=== PATIENT | female | born 1985 | race Caucasian/White ===

== ENCOUNTER → 2020-05-09 12:28 | Outpatient (CLI) | payer OTHER, SELFPAY ==
[2020-05-02 10:41] VITALS: BMI 68.8
--- NOTE | 2020-05-09 12:30 | US_ITS ---
STUDY: ULTRASOUND OF THE FEMALE PELVIS - COMPLETE REASON FOR EXAM: Female, 34 years old. AUB . Abnormal uterine bleeding. LMP: Unknown. TECHNIQUE: Transabdominal and Transvaginal TECHNICAL QUALITY: Limited. Examination limited due to a combination of factors including obesity and bowel gas. COMPARISON: None. FINDINGS: The uterus is anteverted and is in a midline position. The uterus is enlarged and measures 12.2 cm x 6.7 cm x 5.7 cm. Normal uterine cervix. The endometrium measures 11 mm in thickness, and is hyperechoic. There is no demonstrated endometrial mass. There is no demonstrated myometrial mass. I.U.D. - The patient does not have an I.U.D. The right ovary is visualized. The right ovary measures 3.2 cm x 3.6 x 2.5 cm. There is no right ovarian cyst or ovarian mass. There is no visualized right adnexal mass or complex lesion. There is normal arterial and normal venous vascularity. The left ovary is visualized. The left ovary measures 3.4 cm x 2.9 cm x 2.4 cm. There is no left ovarian cyst or ovarian mass. There is no visualized left adnexal mass or complex lesion. There is normal arterial and normal venous vascularity. There is no fluid in the cul-de-sac. The pre void volume of the bladder was 81 ml. US/Transvaginal Non- IMPRESSION: Enlarged uterus. Electronically Signed: Marc Riggins MD at 15:44 EDT , Service support ,
--- NOTE | 2020-05-09 12:30 | US_ITS ---
STUDY: ULTRASOUND OF THE FEMALE PELVIS - COMPLETE REASON FOR EXAM: Female, 34 years old. AUB . Abnormal uterine bleeding. LMP: Unknown. TECHNIQUE: Transabdominal and Transvaginal TECHNICAL QUALITY: Limited. Examination limited due to a combination of factors including obesity and bowel gas. COMPARISON: None. FINDINGS: The uterus is anteverted and is in a midline position. The uterus is enlarged and measures 12.2 cm x 6.7 cm x 5.7 cm. Normal uterine cervix. The endometrium measures 11 mm in thickness, and is hyperechoic. There is no demonstrated endometrial mass. There is no demonstrated myometrial mass. I.U.D. - The patient does not have an I.U.D. The right ovary is visualized. The right ovary measures 3.2 cm x 3.6 x 2.5 cm. There is no right ovarian cyst or ovarian mass. There is no visualized right adnexal mass or complex lesion. There is normal arterial and normal venous vascularity. The left ovary is visualized. The left ovary measures 3.4 cm x 2.9 cm x 2.4 cm. There is no left ovarian cyst or ovarian mass. There is no visualized left adnexal mass or complex lesion. There is normal arterial and normal venous vascularity. There is no fluid in the cul-de-sac. The pre void volume of the bladder was 81 ml. US/Pelvic (Non ) IMPRESSION: Enlarged uterus. Electronically Signed: Marc Riggins MD at 15:44 EDT , Service support ,
[2020-05-09 14:59] LABS: Absolute Lymphocyte Count 2.66 X10^3/uL (0.83-4.51); Absolute Neutrophil Count 4.5 X10^3/uL (2.0-7.7); Basophil# 0.05 X10^3/uL; Basophil% 0.6 % (0-1); Eosinophil# 0.15 X10^3/uL; Eosinophils% 1.9 % (0-5); Hematocrit 42.3 % (37-47); Hemoglobin 12.9 g/dL (12.0-15.0); Lymphocyte # 2.66 X10^3/ul (4.0); Lymphocyte % 34.2 % (19-41); Mean Corp Hgb Conc 30.5 g/dL (32-36); Mean Corpuscular Hgb 24.3 pg (27.0-32.0); Mean Corpuscular Volume 79.7 fL (81-99); Mean Platelet Vol. 10.8 fl (6.2-12.0); Monocyte# 0.37 X10^3/uL; Monocyte% 4.8 % (0-10); NRBC Flagged by Analyzer 0 % (0-5); Platelet Count 317 K/mm3 (150-450); RBC Distribution Width SD 40.9 fl (35.1-43.9); Red Blood Count 5.31 M/mm3 (4.2-5.4); White Blood Count 7.8 K/mm3 (4.4-11.0)
[2020-05-09 16:01] LABS: Prolactin 5.5 ng/mL; Thyroid Stim Hormone (TSH) 2.78 uIU/mL (0.358-3.74)
== END ==
PROVIDERS: PCP Family Medicine; Referring Provider Obstetrics & Gynecology; Visit Provider Obstetrics & Gynecology
DX: N93.9 Abnormal uterine and vaginal bleeding, unspecified (principal); N85.2 Hypertrophy of uterus
CPT/HCPCS: 36415; 76830; 76856; 84146; 84443; 85025

== ENCOUNTER → 2020-06-24 13:02 | Outpatient (CLI) | payer OTHER, SELFPAY ==
[2020-06-24 10:09] VITALS: BMI 70.2
--- NOTE | 2020-06-24 10:45 | EMB_PTH ---
PATIENT: JASON HERNÁNDEZ LOC: [facility] U#:[id number] AGE/SX: 39/F ROOM: RE06/24/[address]: Dr. Chelsea Forbes MD : 1985 BED: DIS: SPEC #: [id number] RECD: 06/24/20 12:47 STATUS: SANTIAGO REElisha #: [id number] TIMBO: 06/24/20 10:[address]: Chelsea Forbes DEPT: SURGICAL PATHOLOGY RECD BY: Edna Gleason ENTERED: 06/24/20 13:13 SP TYPE: ENDOM BX/C [place] DR: Rajiv Do Tissues: Endometrium, NOS Procedures: Surgery Specimen Level IV HEADER OPERATION: Endometrial biopsy PRE-OP DIAGNOSIS: Abnormal uterine bleeding TISSUE SUBMITTED: Endometrial lining MICROSCOPIC DIAGNOSIS Endometrial biopsy: Proliferative endometrium with focal area of mildly disordered proliferative endometrium. SJ:jaime 06/25/2020 MICROSCOPIC DESCRIPTION Slides are reviewed. GROSS DESCRIPTION Received is one container labeled with the patient's name and not further designated. The specimen consists of multiple pieces of cosme-pink soft tissue mixed with mucoid tissue that in aggregate measure 2 x 2 x 0.1 cm. The specimen is totally submitted in one cassette. / SJ:jaime 06/24/20 TC:5 CPT: 05191
[2020-06-26 09:55] LABS: HPV APTIMA, High Risk Negative (Negative)
== END ==
PROVIDERS: PCP Family Medicine; Referring Provider Obstetrics & Gynecology; Visit Provider Obstetrics & Gynecology
DX: N93.9 Abnormal uterine and vaginal bleeding, unspecified (principal); Z12.4 Encounter for screening for malignant neoplasm of cervix
CPT/HCPCS: 87624; 88175; 88305; G0145

== ENCOUNTER 2020-07-16 07:50 | Day surgery (SDC) | payer OTHER, SELFPAY ==
[2020-05-22 12:05] VITALS: BMI 69.1
[2020-06-24 10:09] VITALS: BMI 70.2
--- NOTE | 2020-07-15 09:05 | EKG12_ITS ---
Test Reason : PRE-OP Blood Pressure : / mmHG Vent. Rate : 079 BPM Atrial Rate : 079 BPM P-R Int : 152 ms QRS Dur : 102 ms QT Int : 378 ms P-R-T Axes : -17 005 050 degrees QTc Int : 433 ms Normal sinus rhythm Normal ECG Confirmed by STARLA PRIDE, EMILY ([id number]), mapping editor NATASHA BEJARANO ([id number]) on 07/16/2020 9:05:32 AM Referred By: Chelsea Forbes Confirmed By:EMILY CHA MD
[2020-07-15 10:09] LABS: Hematocrit 38.6 % (37-47); Hemoglobin 11.4 g/dL (12.0-15.0); Mean Corp Hgb Conc 29.5 g/dL (32-36); Mean Corpuscular Hgb 23.3 pg (27.0-32.0); Mean Corpuscular Volume 78.8 fL (81-99); Platelet Count 236 K/mm3 (150-450); RBC Distribution Width CV 14.6 % (11.6-14.6); RBC Distribution Width SD 41.3 fl (35.1-43.9); White Blood Count 6.8 K/mm3 (4.4-11.0)
[2020-07-15 10:39] LABS: Anion Gap 4 (5-15); BUN 11 mg/dL (7-18); BUN/Creat Ratio 14.2 RATIO (10-20); Calcium,Total 8.7 mg/dL (8.5-10.1); Chloride 103 mmol/L (98-107); Creatinine, Serum 0.77 mg/dL (0.55-1.02); EST Glomerular Filtration Rate 91 mL/min (>60); Est Glom Filt Rate - Afr Amer 110 mL/min (>60); Glucose 113 mg/dL (74-106); Potassium 3.8 mmol/L (3.5-5.1); Sodium Level 135 mmol/L (136-145)
[2020-07-16] VITALS (17 sets, daily range): BP systolic 102–135; BP diastolic 42–89; PULSE 67–88; RESP 16–30; TEMP 36.4–37.3; O2SAT 92–99; BMI 70.0
--- NOTE | 2020-07-16 | HYST_PTH ---
PATIENT: JASON HERNÁNDEZ LOC: [facility] [place] U#:[id number] AGE/SX: 34/F ROOM: RE07/16/[address]: Dr. Chelsea Forbes MD : 1985 BED: DIS: 07/17/2020 SPEC #: [id number] RECD: 07/16/20 15:19 STATUS: SANTIAGO REElisha #: [id number] TIMBO: 07/16/20 00:[address]: Chelsea Forbes DEPT: SURGICAL PATHOLOGY RECD BY: Andres Angel ENTERED: 07/17/20 08:57 SP TYPE: HYSTERECT OTHR DR: MD Dr. Rajiv Bazan MD Tissues: Uterus, NOS Procedures: Surgery Specimen Level V HEADER OPERATION: ERAS, laparoscopic robotic hysterectomy, bilateral salpingectomy PRE-OP DIAGNOSIS: Abnormal uterine bleeding TISSUE SUBMITTED: Cervix, uterus, bilateral fallopian tubes MICROSCOPIC DIAGNOSIS Uterus, hysterectomy: Cervix ? squamous metaplasia and mild chronic inflammation. Endometrium ? proliferative endometrium. Endometrial polyp ? benign endometrial polyp with focal cystic change/mild disorder. Myometrium ? focal superficial adenomyosis. Right and left fallopian tubes ? focal endometrial cysts. See comment. AM:jaime 07/18/2020 COMMENT One fallopian tube contains two foci of endometrial cysts. Case has been reviewed in consultation with Dr. Hernandez who concurs with the above diagnosis. IDC:[email or web address] MICROSCOPIC DESCRIPTION Slides are reviewed. GROSS DESCRIPTION Received in fixative is one container labeled with the patient's name and designated uterus, cervix, bilateral fallopian tubes. The specimen consists of a hysterectomy specimen consisting of a uterus, cervix and detached portion of cervix consisting predominantly of ectocervix and detached bilateral fallopian tubes. The uterus with cervix and detached portion of cervix weighs 223 gm. The detached cervix measures 3.5 x 3 x 1 cm. The ectocervical mucosa is unremarkable. The external os is circular in contour. The uterus with detached portion of cervix measures 13 x 9 x 6 cm. It is previously, partially opened. The serosal surface is focally ragged. The endocervical canal measures 4 cm in length and the endocervical mucosa is cosme, glistening and unremarkable. The triangular endometrial cavity measures 6 cm in length and up to cm in width. The endometrium is without any mass lesion and measures up to 0.3 cm in thickness. A detached polyp is noted in the endometrium measuring 2.5 x 1 x 0.5 cm. Sections of the uterine wall do not reveal any mass lesion and it measures 3.5 cm in thickness. The fallopian tubes are not identified as right or left. One of the fallopian tubes measure 4.5 cm in length and 0.5 cm in diameter. The fimbrial end is identified. The second fallopian tube measures 2.5 cm in length and 0.5 cm in diameter. The fimbrial end is identified. Sections of both fallopian tubes reveal unremarkable cut surfaces. Activity Therapist sections are submitted in ten cassettes as follows: 1 - anterior endocervix and detached portion of cervix, 2 - posterior endocervix and detached portion of ectocervix, 3 & 4 - anterior uterine wall, 5 & 6 - posterior uterine wall, 7 - ragged area anterior serosal surface, 8 - endometrial polyp, entirely submitted, 9 - one fallopian tube, 10 - second fallopian tube, entirely submitted. / LINDA:jaime 07/17/20 TC:1 CPT: 48808
[2020-07-16 08:24] LABS: Internal QC Validated? YES +Cl - CLEAR BKGD; Pregnancy, Urine Negative Negative
--- NOTE | 2020-07-16 08:33 | PCM.HP.OB ---
HPI - General HPI Narrative JASON HERNÁNDEZ, is a 34 F who presents robotic assisted total laparoscopic hysterectomy, bilateral salpigectomy, possible bilateral salpingoophorectomy, cystoscopy for AUB with heavy menstrual bleeding PFSH Medical History Anxiety Back pain Bite from insect History of edema History of renal disease History of ulceration Non-smoker Home Medications ibuprofen 800 mg PO Q6H PRN 07/11/20 [History Last Taken Unknown] Allergy/AdvReac Type Severity Reaction Status Date / Time bee pollen [Bee Pollen] Allergy Other Verified 07/11/20 09:24 caterpillers Allergy Other Uncoded 07/11/20 09:24 cats Allergy Other Uncoded 07/11/20 09:24 Family History Mother Diabetes Heart disease Hypertension Surgical History S/P S/P cholecystectomy S/P dilation and curettage Social History Smoking Status: Never smoker alcohol intake: never substance use type: does not use caffeine: Yes what type of physical activity do you participate in: walking frequency: 1-2 times per week seatbelt use: always do you feel safe at home: Yes additional social history: - Quang History 3 Elective abortions Hx Para 2 Spontaneous abortions 1 Hx # Term Pregnancies Ectopic pregnancies Hx # Pregnancies Multiple births # of living children 2 Past Pregnancies Del. Date Name GA/Weeks Outcome Route Bth Weight Infant Gen [facility] F[facility] Unknown Anju Female Unknown Damion Female ROS Eyes Eyes: Reports systems reviewed and no addt'l complaints, except as documented ENT HEENT: Reports systems reviewed and no addt'l complaints, except as documented Cardiovascular Cardiovascular: Reports systems reviewed and no addt'l complaints, except as documented Respiratory/Chest Respiratory/Chest: Reports systems reviewed and no addt'l complaints, except as documented Gastrointestinal Gastrointestinal: Reports systems reviewed and no addt'l complaints, except as documented Genitourinary Genitourinary: Reports systems reviewed and no addt'l complaints, except as documented Musculoskeletal Musculoskeletal: Reports systems reviewed and no addt'l complaints, except as documented Integumentary Integumentary: Reports systems reviewed and no addt'l complaints, except as documented Neurologic Neurologic: Reports systems reviewed and no addt'l complaints, except as documented Psychiatric Psychiatric: Reports systems reviewed and no addt'l complaints, except as documented Endocrine Endocrinology: Reports systems reviewed and no addt'l complaints, except as documented Hematologic/Lymphatic Hematologic/Lymphatic: Reports systems reviewed and no addt'l complaints, except as documented Allergic/Immunologic Allergic/Immunologic: Reports systems reviewed and no addt'l complaints, except as documented Vital Signs Vital Signs Vital Signs: Weight Weight: 384 lb Body Mass Index (BMI) 70.2 Physical Exam Const alert, oriented x3, no apparent distress, average body habitus, healthy appearing and well nourished HEENT normocephalic and moist oral mucous membranes Head and Scalp: atraumatic Eyes PERRL and EOMs intact bilaterally Neck full ROM Resp normal respiratory effort, no retractions and no use of accessory muscles Cardio regular rate and regular rhythm GI soft to palpation, non-tender and non-distended Extremity normal to inspection and full ROM Skin no rashes or lesions noted Neuro no focal motor deficits and no sensory deficits noted Psych mental status grossly normal, affect normal, speech normal and activity/motor behavior normal Labs Labs Labs: Blood Type O POSITIVE Antibody Screen NEGATIVE Hct 38.6 % (37-47) Hgb 11.4 g/dL (12.0-15.0) L Rubella IgG Antibody 31.9 IU/mL Hep Bs Antigen Negative (Negative) Neisseria gonorrhoeae DNA (RACHEL) Negative (Negative) Glucose 1 Hr 50 gm 92 mg/dL (70-140) Group B Strep DNA Negative (Negative) Rhogam given: No Assessment & Plan (1) Abnormal uterine bleeding (AUB): PLAN: Patient presents for robotic assisted total laparoscopic hysterectomy, bilateral salpingectomy, possible bilateral salpingoophorectomy, cystoscopy for AUB with heavy menstrual bleeding No changes to medical or surgical history ROS done and is negative EMB and pap negative Reviewed pre-op and post-op expectations and precautions Again reviewed risks of surgery with patient. Consent signed in office
[2020-07-16] MEDS: Scopolamine 1mg/72hr Patch 1 PATCH TD (08:43)
[2020-07-16] MEDS: Gabapentin 600 MG Tablet PO (08:45)
[2020-07-16] MEDS: Celecoxib 200 MG Capsule 400 MG PO (08:45)
[2020-07-16 08:46] LABS: Bedside Glucose 116 mg/dL (70-110)
[2020-07-16] MEDS: Acetaminophen 500 MG Tablet 1000 MG PO (08:46)
[2020-07-16] MEDS: Phenazopyridine 95 MG Tablet 190 MG PO (08:46)
[2020-07-16] MEDS: dexAMETHasone 10 MG/ML Vial 8 MG IV (09:06)
[2020-07-16] MEDS: Lactated Ringers 1,000 ML 70 ML IV (09:15)
[2020-07-16] MEDS: Lactated Ringers 1,000 ML 40 ML IV (09:19)
[2020-07-16] MEDS: Ropivacaine 0.5% 30 ML Vial (12:00)
--- NOTE | 2020-07-16 14:21 | PCM.DC ---
Discharge Instructions Diet Discharge Diet: No restrictions Activity Discharge Activity: Return to Normal Activity, May Not Drive (while taking narcotic pain medications.) and May Shower May resume sexual activity in: 6-8 weeks Dressing / Incision Call your doctor if your incision/area has: Continuous Slow Oozing, Sudden Increased Bleeding, Increased Pain/ Swelling, Increased Redness and Foul Smelling Discharge Call your doctor if you observe: Fever of 101 or Higher, Inability to urinate, Inability to have a bowel movement and Using more than one pad per hour Follow Up Care Test Results: Test results from this visit will be discussed in further detail at your follow-up appointment, if applicable. Discharge Plan Admission Primary Reason for Your Visit: Hysterectomy Attending Provider: Chelsea Forbes Primary Care Provider: Rajiv Do Consulting Providers: Abiel Tucker Instructions Patient Instructions: Laparoscopic Hysterectomy: Your Home Recovery, Laparoscopic Hysterectomy Discharge Orders/Prescriptions Prescriptions: New oxycodone 5 mg capsule 5 mg PO Q6H PRN (Reason: pain) 5 Days Qty: 15 RF: 0 ondansetron HCl 4 mg tablet 4 mg PO Q6H PRN (Reason: nausea and vomiting) Qty: 30 RF: 0 ibuprofen [ibuprofen] 600 MG tablet 600 mg PO Q6H PRN PRN (Reason: pain) Qty: 30 RF: 1 Discontinued ibuprofen 800 mg Tablet 800 mg PO Q6H PRN (Reason: Pain) RF: 0 Referrals / Follow Up: Rajiv Do MD [Primary Care Provider] - Disposition Disposition (needs filled in before D/C Order can be placed): Home, self care
--- NOTE | 2020-07-16 16:06 | OP.PCM_ITS ---
Problems Associated Problem List Diagnoses (1) Abnormal uterine bleeding (AUB): Report of Operation Date of Procedure: 07/16/20 Pre-Operative Diagnosis: AUB Post-Operative Diagnosis: Same Surgery/Procedure Performed:: Robotic assisted total laparoscopic hysterectomy, bilateral salpingectomy, cystoscopy Description of Surgical Findings:: Enlarged uterus, normal-appearing fallopian tubes bilaterally with Filshie clips in place, follicular cysts present bilaterally, uterus densely adherent to the anterior abdominal wall Surgeon: Chelsea Forbes java lead engineer: Kimani Bello java lead engineer: Miley Wilson Type of Anesthesia: General Special Medications: Ancef 2 g Specimen's removed: Uterus, cervix, bilateral fallopian tubes Drains: Calderon Estimated Blood Loss (mL): 100 cc Description of Procedure: The patient was taken to the operating room where general anesthesia was obtained without difficulty. She was prepped and draped in the dorsolithotomy position with yellowfin stirrups. Weighted speculum was placed in the posterior aspect of the vagina and the anterior lip of the cervix was grasped with a single-tooth tenaculum. The cervix was sequentially dilated in order to accommodate a Aventicular uterine manipulator. Gloves were changed and attention was directed to the abdominal cavity. A 5 mm incision was made in the left upper quadrant and the varies needle was inserted without difficulty. The abdomen was insufflated. The Veress needle was removed and a 5 mm Optiview port was placed under direct visualization. Intra-abdominal placement was confirmed. 8 mm incisions were made in the right and left lower quadrants and approximately 4 fingerbreadths above the umbilicus and robotic ports were placed. A 12 mm accessory port was placed in the right upper quadrant. Findings were as above. The patient was placed in steep Trendelenburg positioning and the bowel was displaced superiorly. The da Amador robot was subsequently docked without any complications. The bilateral fallopian tubes were elevated and grasped. The mesosalpinx was cauterized and transected bilaterally. The fallopian tubes were amputated at the cornual region and removed through the accessory port. The utero-ovarian ligaments were identified bilaterally. These were cauterized and transected with the bipolar cautery and the EndoShears. This was followed by the round ligament, which was cauterized and transected in a similar fashion. Monopolar scissors were used to dissect through dense scar tissue between the uterus and the anterior abdominal wall. The anterior leaf of the broad ligament was entered and the bladder flap dissected off of the lower uterine segment and cervix without complications. The uterine arteries bilaterally were skeletonized, cauterized, and transected. At this time, the uterus was blanched effectively demonstrating that the blood supply to the uterus had been terminated. The colpotomy cup was made with the monopolar scissors and carried around the entire cervicovaginal junction until the cervix and uterus were released from its moorings to the vagina. The cervix and uterus were removed from the abdominal cavity through the vagina. A pneumooccluder was then placed in the vagina. The cuff was then closed in a running fashion using oh V-Loc suture. The abdomen was copiously irrigated, sofiya ared of all clots and debris, and the pedicles were examined and noted to be hemostatic. Occluder was then removed from the vagina. Attention was then directed to the pelvis to perform a cystoscopy. Calderon catheter was removed and the cystoscope was introduced into the bladder. The bladder was inspected and no evidence of trauma was noted. Vigorous spill was noted bilaterally from the ureters. The cystoscope was then removed from the bladder. Gloves were changed and all the instruments were subsequently removed from the patient?s abdomen and vagina, and the 12-mm fascial defect was closed with a #0 Vicryl stitch, and the five skin incisions were closed with #4-0 Monocryl for excellent hemostasis and reapproximation. All counts were correct x2. The patient was awakened and taken to the recovery room in stable condition. Admit VTE Documentation VTE Present on Admission: No VTE Mechan Device Prophylaxis: SCD's VTE Pharm Prophylaxis ordered?: No Multi Select Codes Urinary/Genital Urinary/Genital CPT Codes: 30025 TLH+BS/O <250gr uterus (robotic assisted)
[2020-07-16] MEDS: Lactated Ringers 1,000 ML 75 ML IV (20:03)
[2020-07-17 00:10] VITALS: BP 129/63; PULSE 77; RESP 18; TEMP 36.7; O2SAT 94
[2020-07-17] MEDS: 0.9% Saline Lock 10 ML Syringe IV (00:25)
[2020-07-17 04:03] VITALS: BP 133/58; PULSE 84; RESP 16; TEMP 37; O2SAT 94
[2020-07-17] MEDS: HYDROcodone Bitartrate/Apap 5/325 Tablet PO (04:10)
--- NOTE | 2020-07-17 07:24 | PCM.PN.OB ---
Subjective Subjective Patient seen and examined. Doing well. Pain controlled. Tolerating PO. Ambulating and voiding without difficulty. Denies fevers and chills. Minimal bleeding. Objective Data Objective Data Vital Signs: Vital Signs Temp Pulse Resp BP Pulse Ox 98.6 F 84 16 133/58 H 94 07/17/20 04:03 07/17/20 04:03 07/17/20 04:03 07/17/20 04:03 07/17/20 04:03 Oxygen Flow Rate (L/min) 2 Oxygen Delivery Method Room Air Weight: 389 lb 5.381 oz Body Mass Index (BMI) 70.0 Intake & Output: Intake and Output for Last 24 Hours 07/15/20 07/16/20 07/17/20 23:59 23:59 23:59 Intake Total 1915 / 2215 650 / 650 Output Total 900 / 1300 1100 / 1100 Balance 1015 / 915 -450 / -450 Lab / Micro Data Result Diagrams: 07/15/20 09:30 07/15/20 09:29 Labs: Laboratory Results - last 24 hr 07/16/20 07/16/20 08:15 08:38 Urine Test Negative POC Glucose 116 H Micro: Microbiology 07/15/20 09:15 Interface Orders SARS-CoV-2 Antigen (Rapid) - Final ROS Constitutional Constitutional: Denies fever(s) Cardiovascular Cardiovascular: Denies chest pain, dyspnea or lightheadedness Gastrointestinal Gastrointestinal: Reports abdominal pain; Denies constipation or diarrhea Neurologic Neurologic: Denies dizziness or headache(s) Physical Exam Const alert, oriented x3, no apparent distress, average body habitus, healthy appearing and well nourished HEENT normocephalic Head and Scalp: atraumatic Eyes PERRL and EOMs intact bilaterally Neck full ROM Lymph Lymphatic: no lymphadenopathy noted Resp normal respiratory effort, no retractions and no use of accessory muscles Cardio regular rate GI soft to palpation, non-tender and non-distended Inspection: incision intact and other (dressing in place) Palpation: other Other Details: fundus firm Extremity normal to inspection and no clubbing, cyanosis or edema Skin no rashes or lesions noted Neuro no focal motor deficits and no sensory deficits noted Psych mental status grossly normal, affect normal and speech normal Assessment & Plan (1) S/P hysterectomy: PLAN: Meeting postop milestones Vitals stable Pain controlled Incisions c/d/i Plan DC to home in stable condition
[2020-07-17 07:37] VITALS: O2SAT 93
[2020-07-17 08:00] VITALS: BP 126/63; PULSE 76; RESP 18; TEMP 36.7; O2SAT 97
[2020-07-17] MEDS: Acetaminophen 500 MG Tablet 1000 MG PO (08:08)
[2020-07-17] MEDS: Ketorolac 30 MG/ML Syringe IV (08:09)
[2020-07-17] MEDS: Docusate Sodium 100 MG Capsule PO (08:09)
[2020-07-17 10:14] VITALS: BP 127/61; PULSE 67; RESP 18; TEMP 36.8; O2SAT 97
--- NOTE | 2020-07-17 10:26 | PHA.DC.MC ---
Pharmacy Service has performed discharge medication reconciliation and counseling for this patient. 1. OXYCODONE 5MG PO Q6H PRN PAIN 2. ONDANSETRON 4MG PO Q6H PRN NAUSEA/VOMITING 3. IBUPROFEN 600MG PO Q6H PRN PAIN The patient's discharge medication list was reviewed for discrepancies and discrepancies were resolved. Home Medications ibuprofen 600 mg PO Q6H PRN PRN #30 tab 07/16/20 ondansetron HCl 4 mg PO Q6H PRN #30 tab 07/16/20 oxycodone 5 mg PO Q6H PRN 5 Days #15 cap 07/16/20 The patient was counseled on the following discharge medications and changes in medications for homegoing were reviewed. The Reason for Use, instructions for use, and potential side effects were reviewed for all new medications. The patient's questions regarding all of their medications were answered. The patient was able to verbally demonstrate an understanding of their discharge medications.
== END 2020-07-17 10:27 | disposition home or self-care (01) ==
LOC: SDC 07:53 → AC 07:53 → MS3 07-18 08:56
PROVIDERS: Anesthesiology; PCP Family Medicine; Referring Provider Obstetrics & Gynecology; Visit Provider Obstetrics & Gynecology
PROC: 0UT90ZZ Resection of Uterus, Open Approach (ICD-10-PCS; CPT 58571; principal; 2020-07-16 09:45)
DX: N84.0 Polyp of corpus uteri (principal); N93.9 Abnormal uterine and vaginal bleeding, unspecified
CPT/HCPCS: 00940; 58571; S2900; 36415; 80048; 81025; 82962; 83735; 85027; 86850; 86900; 86901; 87426; 88307; 93005; C9803; J7120; A4216; J2405

== ENCOUNTER 2020-07-18 11:28 | Emergency (ER) | payer OTHER, SELFPAY ==
[2020-07-16 19:08] VITALS: BMI 70.0
[2020-07-18 11:29] VITALS: BP 187/102; PULSE 89; RESP 17; TEMP 36.9; O2SAT 97; BMI 70.7
[2020-07-18 11:43] VITALS: O2SAT 97
--- NOTE | 2020-07-18 11:46 | RAD_ITS ---
STUDY: X-RAY CHEST REASON FOR EXAM: Female, 34 years old. Chest pain TECHNIQUE: Single AP portable view of the chest. COMPARISON: None. FINDINGS: EKG electrodes are seen. Increased markings at the lung bases slightly more prominent on the right side suggestive of either atelectasis and/or early infiltrates. Radiographic follow-up is recommended. There is no demonstrated pleural abnormality. Normal size heart. Normal mediastinum and ally. Normal visualized pulmonary arteries. Normal visualized aortic arch and descending thoracic aorta. Normal visualized thoracic spine. Normal visualized ribs, clavicles, and shoulders. There is no demonstrated abnormality of the visualized soft tissue structures of the upper abdomen. RAD/Chest 1 View (Portable) IMPRESSION: Increased markings at the lung bases as described. This may represent atelectasis and/or early infiltrate. Follow-up is recommended. Electronically Signed: Marc Riggins MD at 13:11 EDT , Service support ,
--- NOTE | 2020-07-18 11:46 | CT_ITS ---
STUDY: CTA CHEST REASON FOR EXAM: Female, 34 years old. Chest pain. Shortness of breath. RADIATION DOSAGE (If Supplied By Facility): CTDIvol = ( 32.34 ) mGy, DLP = ( 756.09 ) mGycm TECHNIQUE: The examination was performed with the intravenous administration of IV 100mL Isovue-370. Post-processing of the angiographic images was performed, with multiplanar reformation and 3D reconstruction. Individualized dose optimization techniques were used for this CT. COMPARISON: None. FINDINGS: Normal enhancement of the main pulmonary artery and right and left pulmonary arteries. Normal enhancement of the bilateral peripheral pulmonary arteries. There is no demonstrated pulmonary embolism. Normal thoracic aorta and visualized great vessels. There is no demonstrated aortic dissection. Normal heart and pericardium. Normal mediastinum. Normal hilar regions. Normal visualized trachea and bronchi. The lungs are well expanded. Mild degree of increased markings with focal area of bone confluence at both lung bases more prominent on the right side. Follow-up is recommended. Normal pleura. Normal chest wall structures. Normal osseous structures. Normal visualized upper abdomen. CT/CTA Chest W/WO Contrast IMPRESSION: Findings suggestive of either atelectasis and/or early infiltrates at both lung bases more prominent on the right side. Electronically Signed: Marc Riggins MD at 13:11 EDT , Service support ,
--- NOTE | 2020-07-18 11:46 | EKG12_ITS ---
Test Reason : SOB Blood Pressure : / mmHG Vent. Rate : 080 BPM Atrial Rate : 080 BPM P-R Int : 154 ms QRS Dur : 098 ms QT Int : 368 ms P-R-T Axes : -04 012 021 degrees QTc Int : 424 ms Normal sinus rhythm Normal ECG Confirmed by STARLA PRIDE, EMILY ([id number]), metropolitan editor NATASHA BEJARANO ([id number]) on 07/19/2020 10:19:00 AM Referred By: BUBBA Confirmed By:EMILY CHA MD
--- NOTE | 2020-07-18 11:46 | ED.VIS.DYS ---
HPI History of Present Illness Chief Complaint: Shortness of Breath Narrative Narrative: 34-year-old female presenting with mild retrosternal chest pain and dyspnea since yesterday. She states that she has not had this problem in the past. She status post hysterectomy postop day #3 and noted that she had some right popliteal pain last night as well. She stretched her leg and this pain on the way. Is not returned. She now notices that she is dyspneic. This is worse with exertion. She states she has no medical problems. She states that her abdomen is only mildly sore and is not even bothering her that much. PFSH PFSH Medical History Anxiety Back pain Bite from insect History of edema History of renal disease History of ulceration Non-smoker Home Medications ibuprofen 600 mg PO Q6H PRN PRN #30 tab 07/16/20 [Rx Last Taken Unknown] ondansetron HCl 4 mg PO Q6H PRN #30 tab 07/16/20 [Rx Last Taken Unknown] oxycodone 5 mg PO Q6H PRN 5 Days #15 cap 07/16/20 [Rx Last Taken Unknown] levofloxacin 500 mg PO DAILY #7 tab 07/18/20 [Rx Last Taken Unknown] Allergy/AdvReac Type Severity Reaction Status Date / Time bee pollen [Bee Pollen] Allergy Other Verified 07/18/20 11:31 caterpillers Allergy Other Uncoded 07/18/20 11:31 cats Allergy Other Uncoded 07/18/20 11:31 Family History Mother Diabetes Heart disease Hypertension Surgical History H/O bilateral salpingectomy H/O cystoscopy History of total abdominal hysterectomy S/P S/P cholecystectomy S/P dilation and curettage Social History Smoking Status: Never smoker alcohol intake: never substance use type: does not use caffeine: Yes what type of physical activity do you participate in: walking frequency: 1-2 times per week seatbelt use: always do you feel safe at home: Yes additional social history: - Quang ROS ROS ED Constitutional Constitutional ED: Denies chills, fever(s) or sweats Eyes Eyes: Denies blurry vision or change in vision ENT ENT ED: Denies ear pain, rhinorrhea or sore throat Cardiovascular Cardiovascular: Reports chest pain; Denies palpitations or racing heartbeat Respiratory/Chest Respiratory/Chest: Reports dyspnea; Denies cough or sputum Gastrointestinal Gastrointestinal: Denies abdominal pain, constipation, diarrhea or vomiting Genitourinary Genitourinary ED: Denies dysuria, hematuria or urinary frequency Musculoskeletal Musculoskeletal: Denies arthralgias, myalgias or neck pain Integumentary Denies abscess, Abrasions or rash Neurologic Neurologic: Denies headache(s), paresthesias or weakness Psychiatric Psychiatric: Denies anxiety, depression, suicidal ideation or suicidal thoughts Endocrine Endocrinology: Denies polydipsia or polyuria EXAM Physical Exam Const Vital Signs: 07/18/20 11:29 07/18/20 11:43 07/18/20 11:52 Temperature 98.5 F Temperature Source Temporal Pulse Rate 89 Respiratory Rate 17 Respiratory Effort Short of Breath Blood Pressure 187/102 H Blood Pressure Mean 130 Pulse Ox 97 98 Oxygen Delivery Method Room Air Room Air Room Air 07/18/20 13:00 Temperature Temperature Source Pulse Rate 66 Respiratory Rate 20 H Respiratory Effort Blood Pressure 143/65 H Blood Pressure Mean 91 Pulse Ox 96 Oxygen Delivery Method Room Air Positive obese General Appearance ED: NAD Nutritional Appearance: obese HEENT Reports moist mucous membranes atraumatic Eyes PERRL and EOMs intact bilaterally Resp normal respiratory effort and clear to auscultation bilaterally Cardio regular rate and regular rhythm GI non-distended Palpation: soft Back/Spine no CVA tenderness and normal to inspection Extremity normal to inspection General Extremety ED: Negative for tenderness Neuro oriented x3 Sensorium / Orientation: alert Psych mental status grossly normal Thought Process: normal thought process Skin Lesions: no lesions Rashes: no rashes MDM MDM MDM Narrative Medical decision making narrative: Patient presenting with some mild chest discomfort and shortness of breath since yesterday. She also complains of sporadic leg pain in right popliteal region which resolved with stretching. Given patient's recent surgery she was worked up for pulmonary embolism. Her initial EKG is sinus rhythm at 80 bpm without signs of ischemic changes as interpreted by myself. Chest x-ray is concerning for bibasilar infiltrates versus atelectasis as interpreted by myself and radiology does agree. Patient's blood work shows no leukocytosis. Her hemoglobin is 10.1 which was 11.4 prior to surgery. This is likely due to surgery. Patient's renal function and electrolytes are normal. Troponin is negative. Given she has had this sensation since last evening I do not believe it is cardiac in nature. CTA of the chest is negative for dissection or pulmonary embolism but does show concern for early infiltrate. Given this I will start her on Levaquin. It is possible she could be having some shortness of breath due to her hemoglobin drop as well. She is counseled to follow-up with her primary care physician or [facility] for monitoring of the hemoglobin levels. I feel she is stable to be discharged home but is given strict return precautions if she is having any worsening. Patient amenable this plan and she is discharged home in stable condition. Impression: 1. Pneumonia Lab Data Attestation: I reviewed the patient's lab results. Labs: Laboratory Results - last 24 hr 07/18/20 07/18/20 11:51 11:51 WBC 7.1 RBC 4.20 Hgb 10.1 L Hct 33.5 L MCV 79.8 L MCH 24.0 L MCHC 30.1 L RDW Std Deviation 43.0 RDW Coeff of Jennifer 14.9 H Plt Count 192 MPV 10.5 Immature Gran % (Auto) 0.700 Neut % (Auto) 57.8 Lymph % (Auto) 33.0 [place] % (Auto) 6.1 Eos % (Auto) 1.8 Baso % (Auto) 0.6 Absolute Neuts (auto) 4.1 Absolute Lymphs (auto) 2.33 Nucleated RBC % 0 Sodium 138 Potassium 3.9 Chloride 107 Carbon Dioxide 29.0 Anion Gap 2 L BUN 9 Creatinine 0.81 Estim Creat Clear Calc 78.13 Est GFR (MDRD) Af Amer 104 Est GFR (MDRD) Non-Af 86 BUN/Creatinine Ratio 11.1 Glucose 112 H Calcium 8.0 L Troponin I < 0.015 Radiography Diagnostic Testing: Radiology Impression Chest CTA 07/18/20 11:46 IMPRESSION: Findings suggestive of either atelectasis and/or early infiltrates at both lung bases more prominent on the right side. Electronically Signed: Marc Riggins MD at 13:11 EDT , Service support , Chest X-Ray 07/18/20 11:46 IMPRESSION: Increased markings at the lung bases as described. This may represent atelectasis and/or early infiltrate. Follow-up is recommended. Electronically Signed: Marc Riggins MD at 13:11 EDT , Service support , Discharge Plan Triage Chief Complaint: Shortness of Breath ED Provider: Mina Hess Dx/Rx/DC Orders Instructions: ED Pneumonia (Adult) Prescriptions: New levofloxacin 500 mg tablet 500 mg PO DAILY Qty: 7 RF: 0 No Action oxycodone 5 mg capsule 5 mg PO Q6H PRN (Reason: pain) 5 Days Qty: 15 RF: 0 ondansetron HCl 4 mg tablet 4 mg PO Q6H PRN (Reason: nausea and vomiting) Qty: 30 RF: 0 ibuprofen [ibuprofen] 600 MG tablet 600 mg PO Q6H PRN PRN (Reason: pain) Qty: 30 RF: 1 Primary Care Provider: Rajiv Do Referrals: Rajiv Do MD [Primary Care Provider] - Disposition Disposition: Home, self care
[2020-07-18 11:52] VITALS: O2SAT 98
[2020-07-18 12:04] LABS: Absolute Lymphocyte Count 2.33 X10^3/uL (0.83-4.51); Absolute Neutrophil Count 4.1 X10^3/uL (2.0-7.7); Basophil# 0.04 X10^3/uL; Basophil% 0.6 % (0-1); Eosinophil# 0.13 X10^3/uL; Eosinophils% 1.8 % (0-5); Hematocrit 33.5 % (37-47); Hemoglobin 10.1 g/dL (12.0-15.0); Lymphocyte # 2.33 X10^3/ul (0.83-4.51); Mean Corp Hgb Conc 30.1 g/dL (32-36); Mean Corpuscular Volume 79.8 fL (81-99); Mean Platelet Vol. 10.5 fl (6.2-12.0); Monocyte# 0.43 X10^3/uL; Monocyte% 6.1 % (0-10); NRBC Flagged by Analyzer 0 % (0-5); Neutrophil # 4.07 X10^3/uL (2.7-7.7); Neutrophil % 57.8 % (47-70); Platelet Count 192 K/mm3 (150-450); RBC Distribution Width CV 14.9 % (11.6-14.6); White Blood Count 7.1 K/mm3 (4.4-11.0)
[2020-07-18 12:14] LABS: Anion Gap 2 (5-15); BUN 9 mg/dL (7-18); BUN/Creat Ratio 11.1 RATIO (10-20); Chloride 107 mmol/L (98-107); Creatinine, Serum 0.81 mg/dL (0.55-1.02); EST Glomerular Filtration Rate 86 mL/min (>60); Est Glom Filt Rate - Afr Amer 104 mL/min (>60); Estimated Creatinine Clearance 78.13 ml/min; Glucose 112 mg/dL (74-106); Potassium 3.9 mmol/L (3.5-5.1); Sodium Level 138 mmol/L (136-145)
[2020-07-18 13:00] VITALS: BP 143/65; PULSE 66; RESP 20; O2SAT 96
[2020-07-18 14:14] VITALS: RESP 16; O2SAT 96
== END 2020-07-18 14:15 | disposition home or self-care (01) ==
PROVIDERS: Emergency Provider Student in an Organized Health Care Education/Training Program; PCP Family Medicine
DX: J18.9 Pneumonia, unspecified organism (principal); E66.9 Obesity, unspecified
CPT/HCPCS: 71045; 71275; 80048; 84484; 85025; 87426; 93005; 99284; Q9967; A4216

== ENCOUNTER → 2020-08-29 11:36 | Outpatient (CLI) | payer OTHER, SELFPAY ==
[2020-08-29 09:48] VITALS: BMI 70.7
== END ==
PROVIDERS: PCP Family Medicine; Referring Provider Obstetrics & Gynecology; Visit Provider Obstetrics & Gynecology
DX: N89.8 Other specified noninflammatory disorders of vagina (principal)
CPT/HCPCS: 87070; 87205

== ENCOUNTER → 2020-09-11 11:06 | Outpatient (CLI) | payer OTHER, SELFPAY ==
[2020-09-11 09:47] VITALS: BMI 70.7
== END ==
PROVIDERS: PCP Family Medicine; Visit Provider Nurse Practitioner Women's Health
DX: R30.0 Dysuria (principal)
CPT/HCPCS: 87086; 87088

== ENCOUNTER → 2020-09-20 16:58 | Outpatient (CLI) | payer OTHER, SELFPAY ==
[2020-09-20 15:45] VITALS: BMI 70.7
== END ==
PROVIDERS: PCP Family Medicine; Referring Provider Obstetrics & Gynecology; Visit Provider Obstetrics & Gynecology
DX: N89.8 Other specified noninflammatory disorders of vagina (principal); R30.0 Dysuria
CPT/HCPCS: 87070; 87086; 87088; 87205

== ENCOUNTER → 2021-01-03 12:32 | Outpatient (CLI) | payer OTHER, SELFPAY | PROVIDERS: PCP Family Medicine; Visit Provider Family Medicine | DX: N39.0 Urinary tract infection, site not specified (principal) | CPT/HCPCS: 87086; 87088 ==

== ENCOUNTER → 2021-01-21 11:24 | Outpatient (CLI) | payer OTHER, SELFPAY ==
--- NOTE | 2021-01-21 11:26 | VDLE_ITS ---
Reason For Study: LLE PAIN Procedure LEFT This is a venous duplex using B-mode, color GSV is normal. flow and spectral Doppler. CFV is compressible, spontaneous, phasic, Exam performed in department. competent, and demonstrates normal The study was technically difficult. augmentation. Due to body habitus. FV is compressible, spontaneous, phasic, A preliminary report was called and/or faxed competent and demonstrates normal to Dr. Montelongo @ 11:45 am. @ [phone]. augmentation. POP V is compressible, spontaneous, phasic, competent and demonstrates normal augmentation. T/P Trunk is compressible. PTV is compressible. PER V were not visualized. VL/Venous Duplex US, Unilateral Interpretation Summary There is no evidence of left lower extremity deep vein thrombosis. Left great s aphenous vein appears patent and compressible segmentally. Technically difficult secondary to body lowery bitus Ordering Physician: Percy Montelongo Referring Physician: Percy Montelongo Performed By: Corie Mooney, LEATHA, RVT
== END ==
PROVIDERS: PCP Family Medicine; Referring Provider Family Medicine; Visit Provider Family Medicine
DX: M79.662 Pain in left lower leg (principal)
CPT/HCPCS: 93971

== ENCOUNTER 2021-03-25 09:14 | Outpatient (CLI) | payer OTHER, SELFPAY | END 2021-03-25 23:59 | disposition short-term general hospital (02) | LOC: LABSPEC 03-26 09:15 | PROVIDERS: PCP Family Medicine; Visit Provider Obstetrics & Gynecology | DX: N76.0 Acute vaginitis (principal) | CPT/HCPCS: 87070; 87205 ==

== ENCOUNTER → 2021-07-28 | Outpatient (CLI) | payer OTHER, SELFPAY | END | disposition home or self-care (01) | LOC: MFPLAB 11:35 | PROVIDERS: PCP Family Medicine; Visit Provider Family Medicine | DX: R30.0 Dysuria (principal) | CPT/HCPCS: 87086; 87088 ==